=== PATIENT | female | born 1965 | race Caucasian/White ===

== ENCOUNTER → 2016-04-24 | Outpatient (CLI) | payer BC, OTHER | END | disposition home or self-care (01) | LOC: C.LABMFLN 13:43 | PROVIDERS: ATTEND Family Medicine | DX: R10.9 Unspecified abdominal pain (principal) ==

== ENCOUNTER → 2016-05-27 | Outpatient (CLI) | payer BC ==
[2016-05-27 17:45] LABS: URINE APPEARANCE CLEAR (CLEAR); URINE BILIRUBIN NEG (NEG); URINE COLOR YELLOW; URINE NITRITE NEG (NEG); URINE SPECIFIC GRAVITY 1.009 (1.000-1.030); UROBILINOGEN NEG (NEG)
[2016-05-27 17:54] LABS: MANUAL MICROSCOPIC REQUIRED? NO; REVIEW REQ? NO
== END | disposition home or self-care (01) ==
LOC: C.LABMFLN 13:57
PROVIDERS: ATTEND Family Medicine
DX: R31.0 Gross hematuria (principal)

== ENCOUNTER → 2016-05-27 | Outpatient (CLI) | payer BC | END | disposition home or self-care (01) | LOC: C.PAPS 08:30 | PROVIDERS: ATTEND Family Medicine | DX: Z01.419 Encounter for gynecological examination (general) (routine) without abnormal findings (principal) ==

== ENCOUNTER → 2017-02-02 | Outpatient (CLI) | payer BC ==
--- NOTE | 2017-02-03 07:36 | MAMMOGRAPHY REPORT ---
BILATERAL DIGITAL SCREENING MAMMOGRAM TOMOSYNTHESIS WITH CAD: 02/02/2017 CLINICAL HISTORY: Routine screening. Patient has no complaints. TECHNIQUE: Breast tomosynthesis in addition to standard 2D mammography was performed. Current study was also evaluated with a Computer Aided Detection (CAD) system. COMPARISON: Comparison is made to exams dated: 12/23/2015 mammogram, 12/19/2014 mammogram, 4 mammogram, 01/15/2014 stereotactic biopsy, 01/03/2014 mammogram, and 12/18/2013 mammogram - [facility]. BREAST COMPOSITION: The tissue of both breasts is heterogeneously dense, which may obscure small mas ses. FINDINGS: There is a stable dumbbell shaped biopsy marker clip in the 6:00 middle one third of the ri ght breast. A few remaining punctate microcalcifications are seen just posterior and medial to the b iopsy marker clip, most likely representing central benign calcifications. There is also a stable ri bbon-shaped biopsy marker clip in the lateral left breast. No new suspicious mass, architectural distortion or cluster of microcalcifications is seen. IMPRESSION: ACR BI-RADS CATEGORY 2: BENIGN There is no mammographic evidence of malignancy. A 1 year screening mammogram is recommended. The pa tient will receive written notification of the results. Approximately 10% of breast cancers are not detected with mammography. A negative mammographic report should not delay biopsy if a clinically suggestive mass is present. Veronica Fofana M.D. ay/:02/02/2017 16:29:46 Certified Welder: Zoie DHILLON(Thomas)(Pauline), [facility] letter sent: Normal 1/2 BI-RADS Code: ACR BI-RADS Category 2: Benign
== END | disposition home or self-care (01) ==
LOC: C.MAMM 12:08
PROVIDERS: ATTEND Family Medicine
DX: Z12.31 Encounter for screening mammogram for malignant neoplasm of breast (principal)

== ENCOUNTER → 2017-05-31 | Outpatient (CLI) | payer BC ==
[2017-05-31 13:44] LABS: BASO % 0.7 %; BASO ABS # 0.03 K/uL (0-0.2); EOS % 1.3 %; EOS ABS # 0.06 K/uL (0-0.5); HEMATOCRIT 38.9 % (37-47); HEMOGLOBIN 13.4 g/dL (12.0-16.0); IG# 0.01 K/uL (0.00-0.02); LYMPH % 49.8 %; LYMPH ABS # 2.25 K/uL (1.2-3.4); MEAN CELL VOLUME 94.4 fL (80-100); MEAN CORPUSCULAR HEMOGLOBIN 32.5 pg (25-34); MEAN CORPUSCULAR HGB CONC 34.4 g/dl (32-36); MONO ABS # 0.36 K/uL (0.11-0.59); NEUT ABS # 1.81 K/uL (1.4-6.5); PLATELET COUNT 299 K/uL (130-400); RED CELL DISTRIBUTION WIDTH CV 13.2 % (11.5-14.5); RED CELL DISTRIBUTION WIDTH SD 45.8 fL (36.4-46.3); WHITE BLOOD COUNT 4.52 K/uL (4.8-10.8)
[2017-05-31 14:29] LABS: ALBUMIN 4.2 gm/dl (3.4-5.0); BLOOD UREA NITROGEN 12 mg/dl (7-18); CARBON DIOXIDE 25 mmol/L (21-32); CHOLESTEROL 182 mg/dl (0-200); GLUCOSE 88 mg/dl (70-99); POTASSIUM 3.8 mmol/L (3.5-5.1); SODIUM 138 mmol/L (136-145)
[2017-05-31 14:40] LABS: LDL CHOLESTEROL CALCULATED 103 mg/dl
== END | disposition home or self-care (01) ==
LOC: C.LABMFLN 09:43
PROVIDERS: ATTEND Family Medicine
DX: Z11.59 Encounter for screening for other viral diseases (principal); R00.2 Palpitations; E78.5 Hyperlipidemia, unspecified

== ENCOUNTER 2018-09-04 14:03 | Inpatient (IN) ==
[2018-09-04] MEDS ORDERED: methylPREDNISolone 125 MG/2 ML VIAL IV STA (14:34)
[2018-09-04] MEDS ORDERED: SODIUM CHLORIDE 0.9% 500 ML IV SCH (14:45)
[2018-09-04 14:47] LABS: Basophils # (auto) 0.02 K/uL (0-0.2); Basophils % (auto) 0.2 %; Hematocrit (blood only) 28.9 % (37-47); Immature Granulocytes # (auto) 0.23 K/uL (0.00-0.02); Immature Granulocytes % (auto) 2.6 %; Lymphocytes # (auto) 1.59 K/uL (1.2-3.4); Lymphocytes % (auto) 17.9 %; Mean Corpuscular Hgb Conc 31.1 g/dL (32-36); Mean Corpuscular Volume 83.5 fL (80-100); Mean Platelet Volume 8.1 fL (7.4-10.4); Neutrophils # (auto) 6.25 K/uL (1.4-6.5); Neutrophils % (auto) 70.3 %; Platelet Count 698 K/uL (130-400); RDW Coefficient of Variation 16.1 % (11.5-14.5); RDW Standard Deviation 48.9 fL (36.4-46.3); Red Blood Count 3.46 M/uL (4.2-5.4); White Blood Count 8.89 K/uL (4.8-10.8)
[2018-09-04 14:55] LABS: Albumin Level 2.4 gm/dl (3.4-5.0); BUN Creatinine Ratio 15.1 (10-20); Calcium 8.9 mg/dl (8.5-10.1); Creatinine Clr Calc Pharmacy 71.1 ml/min; Est GFR (African American) 96.1; Est GFR (Non-African American) 82.9; Potassium 3.8 mmol/L (3.5-5.1)
[2018-09-04 14:57] LABS: Albumin Globulin Ratio 0.5 (0.9-2); Bilirubin,Total 0.2 mg/dl (0.2-1); Globulin 4.5 gm/dl (2.5-4.0); Total Protein 6.9 gm/dl (6.4-8.2)
[2018-09-04 15:06] LABS: Appearance Urine Cloudy (Clear); Bacteria Urine Automated Negative (Negative); Bilirubin Urine Negative (Negative); Blood Urine Negative (Negative); Color Urine Yellow; Epithelial Cell Urine Auto >30 /lpf (0-5); Glucose Urine UA Negative (Negative); Ketones Urine Negative (Negative); Leukocyte Esterase Urine Trace (Negative); Nitrite Urine Negative (Negative); Protein Urine Negative (Negative); RBC Urine Automated 0-4 /hpf (0-4); Specific Gravity Urine 1.019 (1.000-1.030); Urobilinogen Urine Negative (Negative); pH Urine 6.5 (4.5-7.5)
--- NOTE | 2018-09-04 17:42 | History & Physical Report ---
Date of Service September 04, 2018 History of Present Illness Chief Complaint: GI bleeding, arthralgias, back pain associated with Crohn's flare. Primary Care Provider: Sophie Russell MD 52 y/o F Hx Crohn's disease, B12 deficiency, arthralgias and sacroiliitis. The pt was has been experiencing a flare of her Crohn's disease, persistent diarrhea, rectal bleeding and resultant anemia for close to 6 months. Prior to this time she had been taking Remicade successfully for 1.5 years until the medication essentially failed. She is now prescribed Entyvio and has been taking this, thus far without effect for approximately 14 weeks. She is also on a steroid taper and Budesonide. 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 PMH: 1) Crohn's disease - she was diagnosed with UC at age 36 although she has likely had Crohn's from the outset. She managed with Mesalazine and occasional steroids for nearly 15 years until starting Remicade. The diagnosis was recently changed from UC to Crohn's based on colonoscopy results. She follows with Dr Posada and has consulted with a specialist at [place] and [facility] as well. 2) HLA B27 +. She is told she likely has ankylosing spondylitis but does not have an official diagnosis. 3) Chronic arthralgias and sacroiliitis. 4) B12 deficiency 5) Anemia due to chronic disease, blood loss and iron deficiecny - recent baseline Hb has been 9-10 6) Asthma Surgical: 1) Broken nose 2) [facility] teeth 3) L elbow surgery 4) C section 5) Cholecystectomy Social: Rare ETOH, no smoking history. 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 Family: 2 siblings with UC Father had colon CA Allergies Allergy/AdvReac Type Severity Reaction Status Date / Time amoxicillin [From Augmentin] Allergy Verified 09/04/18 15:00 clavulanic acid Allergy Verified 09/04/18 15:00 [From Augmentin] Home Medications Home Medications Medication Instructions Recorded Confirmed Type vedolizumab 300 mg intravenous 300 mg IV .COMPLEX ea 07/31/18 09/04/18 History solution ondansetron HCl 4 mg tablet 4 mg PO QID PRN #30 tab 08/29/18 09/04/18 Rx pramoxine 1 % topical foam 1 appln WI TID 08/29/18 09/04/18 History prednisone 10 mg tablets in a dose 40 mg PO QAM ea 08/29/18 09/04/18 History pack celecoxib 200 mg PO PM 09/04/18 09/04/18 History cyanocobalamin (vitamin B-12) 1,000 mcg PO QAM 09/04/18 09/04/18 History dicyclomine 10 mg PO BID PRN 09/04/18 09/04/18 History loratadine 10 mg PO DAILY PRN 09/04/18 09/04/18 History pantoprazole 20 mg PO QAM 09/04/18 09/04/18 History Past Med/Surg History Medical History Iron deficiency anemia Allergic rhinitis (Chronic) Asthma (Chronic) Hyperlipidemia (Chronic) Idiopathic polyneuropathy (Chronic) Inflammatory polyarthritis (Chronic) Insomnia (Chronic) Ulcerative colitis (Chronic) Vitamin B12 deficiency (Chronic) Surgical History S/P breast biopsy H/O elbow surgery S/P nasal surgery S/P S/P cholecystectomy S/P colonoscopy Family History Unknown Hypertension Mother Hypertension Brother Hypertension Ulcerative colitis Sister Ulcerative colitis Other Asthma Cancer Colon cancer Hay fever No pertinent family history Urinary bladder cancer Social History Preferred Language: Gabonese Communication Ability: Effective Visual Impairment: No Limitations Hearing Ability: Normal Feels Safe at Home: Yes Smoking Status: Never smoker Review of Systems Review of Systems: Gen: Denies fevers, night sweats, rigors, fatigue, malaise, weight loss/gain ENT: Denies congestion, throat pain, hearing loss Eyes: Denies acute visual changes CV: Denies CP, palpitations Pulmonary: Denies SOB, cough, wheezing GI: Diarrhea, rectal pain and bleeding. Neuro: Denies acute or unilateral weakness, acute gait impairment, headache or acute visual changes Musculoskeletal: Lower back and joint pains Endocrine: Denies polydipsia, polyuria Skin: Denies acute rashes or ulcers - she had a transient rash which may have been related to Entyvio. Physical Exam Physical Exam: General: Well-appearing, middle-aged F, AAO x 3, no distress ENT: No erythema or exudates. +Thrush Eyes: MARYANN, EOMI Head and neck: Normocephalic, atraumatic, No JVD, neck is supple. Chest/heart: Nontender, S1,2, RRR, no murmurs, no gallops Lungs: CTAB, no wheezing or crackles Abdomen: Nontender, nondistended, BS+ Neuro: AAO x 3, speech is clear, no unilateral weakness or loss of sensation, coordination intact Musculoskeletal: No joint inflammation, muscle tenderness, FROM Skin: No acute rashes or ulcers Extremities: No clubbing, cyanosis, edema Results & Data Vital Signs (Past 12 Hours) Vital Signs Temp Pulse Resp BP Pulse Ox 09/04/18 14:05 98.6 F 121 H 18 117/56 L 98 Diagnostic Findings 52 y/o F Hx Crohn's disease, B12 deficiency, arthralgias and sacroiliitis. The pt was has been experiencing a flare of her Crohn's disease, persistent diarrhea, rectal bleeding and resultant anemia for close to 6 months. Prior to this time she had been taking Remicade successfully for 1.5 years until the medication essentially failed. She is now prescribed Entyvio and has been taking this, thus far without effect for approximately 14 weeks. She is also on a steroid taper and Budesonide. 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 1) Crohn's flare - per request of GI, provided with IV steroids. She is instructed to continue Entyvio as it may take a few months for results. She is placed on a liquid diet and GI is consulted. 2) Back pain and arthralgias - she takes Celecoxib which we will hold presently. She is provided with Tramadol for pain. 3) B12 deficiency - cont B12 4) Anemia - appears stable - trend CBC AM 5) Thrush - Nystatin provided Full code - SCDs due to active bleeding - she is at risk of DVT and should mobilize frequently. Total time for this admit including review of labs, meds, imaging, records - discussion with pt and ER attending - 40 min PG Care Time/CCT Total # of Minutes Spent Total Time Spent with Patient: Total time spent is greater than 50% in coordination of care (as documented) at patient's floor/unit and/or counseling patient:
[2018-09-04] MEDS ORDERED: LORATADINE 10 MG TAB PO PRN (18:26)
[2018-09-04] MEDS ORDERED: ACETAMINOPHEN 325 MG TAB PO PRN (18:26)
[2018-09-04] MEDS ORDERED: ONDANSETRON INJ 2 MG/ML 2 ML VIAL IV PRN (18:26)
[2018-09-04] MEDS: LACTATED RINGER'S 1,000 ML IV SCH (18:47)
[2018-09-04] MEDS: TRAMADOL HCL 50 MG TABLET PO PRN (19:34)
--- NOTE | 2018-09-04 20:27 | Emergency Department Note ---
Entered by Aramis Tucker acting as a scribe for History of Present Illness General Chief complaint: Abdominal Pain Stated complaint: IBD Source: patient History of Present Illness Provider complaint: Rectal pain Onset (ago): month(s) 6 Location: buttocks Severity: similar to prior episodes Pain Consistency: + constant Maximum Pain Intensity: 3 Quality: + aching, + sharp and + other (Throbbing) Relieved By: + none Exacerbated By: + other (Bowel movements, standing) Associated symptoms: + other (Positive diarrhea; Positive hematochezia; Positive lightheadedness); no fever/chills, no loss of appetite and no nausea/vomiting The patient is a 52 year old female who presents to the Emergency Room with complaints of constant rectal pain that has been worsening over the past 6 months. The patient has a history of Crohn's disease, which she was being treated for with Remicade for about a year and a half before it suddenly stopped working. She was then put on Entyvio, which she receives one dose every 8 weeks. The patient notes this coming Wednesday will valentin the 8 week period since her last dose. Since the Remicade stopped working, the patient has had diarrhea, which almost always contained blood. She notes that when she has larger bowel movements the blood is bright red, but normally it is more of a "pink sludge". The patient also reports having sharp rectal pains, when normally it is a throbbing, achy sensation that is worse with bowel movements. Today, the patient states she started experiencing lightheadedness, especially when she stands. She also noticed a tingling sensation in her hands and feet. The patient notes she took her blood pressure at home and it was 96/60 when it normally runs around 110 systolically. The patient denies having an abnormal amount of blood wth bowel movements since the onset of the lightheadedness. The patient has been seen by multiple doctors for her symptoms including Dr. Posada, who diagnosed her with Crohns, and specialist at [facility]. She notes about 6 days ago she had her INR checked and it was 9.1.The patient is currently on day 9 of a course of 40mg Prednisone. The patient also takes Celebrex for her sacroiliitis, becaus e she was having trouble ambulating due to the disease. The patient also has a history of gastritis and mild asthma. The patient denies any fevers, vomiting, loss of appetite, or urinary symptoms. Home Medications Home Medications Medication Instructions Recorded Confirmed Type vedolizumab 300 mg intravenous 300 mg IV .COMPLEX ea 07/31/18 09/04/18 History solution ondansetron HCl 4 mg tablet 4 mg PO QID PRN #30 tab 08/29/18 09/04/18 Rx pramoxine 1 % topical foam 1 appln AL TID 08/29/18 09/04/18 History prednisone 10 mg tablets in a dose 40 mg PO QAM ea 08/29/18 09/04/18 History pack celecoxib 200 mg PO PM 09/04/18 09/04/18 History cyanocobalamin (vitamin B-12) 1,000 mcg PO QAM 09/04/18 09/04/18 History dicyclomine 10 mg PO BID PRN 09/04/18 09/04/18 History loratadine 10 mg PO DAILY PRN 09/04/18 09/04/18 History pantoprazole 20 mg PO QAM 09/04/18 09/04/18 History Allergies Allergy/AdvReac Type Severity Reaction Status Date / Time amoxicillin [From Augmentin] Allergy Verified 09/04/18 15:00 clavulanic acid Allergy Verified 09/04/18 15:00 [From Augmentin] Past Med/Surg History Medical History Iron deficiency anemia Allergic rhinitis (Chronic) Asthma (Chronic) Hyperlipidemia (Chronic) Idiopathic polyneuropathy (Chronic) Inflammatory polyarthritis (Chronic) Insomnia (Chronic) Ulcerative colitis (Chronic) Vitamin B12 deficiency (Chronic) Surgical History S/P breast biopsy H/O elbow surgery S/P nasal surgery S/P S/P cholecystectomy S/P colonoscopy Family History Unknown Hypertension Mother Hypertension Brother Hypertension Ulcerative colitis Sister Ulcerative colitis Other Asthma Cancer Colon cancer Hay fever No pertinent family history Urinary bladder cancer Social History Preferred Language: Turkmen Communication Ability: Effective Visual Impairment: No Limitations Hearing Ability: Normal Beliefs That Will Affect Care: None Current Living Situation: Spouse Feels Safe at Home: Yes Smoking Status: Never smoker Second Hand Exposure: No Hx Alcohol Use: Yes Hx Substance Use: No Review of Systems See HPI for pertinent positives & negatives. and A total of 10 systems reviewed and were otherwise negative Physical Exam Vital Signs Vital Signs - 24 hr 09/04/18 14:05 09/04/18 16:04 Temperature 37.0 C Temperature Source Oral Sepsis Recent Fever Within 48 Hours No Sepsis New/Unexplained Change in Mental Status No Sepsis Action Taken by Nursing No Action Required Pulse Rate 121 H Pulse Rate [Right Finger] 78 Respiratory Rate 18 18 Respiratory Effort / Characteristics Non-Labored Non-Labored Spontaneous Respiratory Depth Normal Normal Respiratory Pattern Regular Blood Pressure 117/56 L Blood Pressure [Right Arm] 129/62 Blood Pressure Mean 76 Blood Pressure Mean [Right Arm] 84 Blood Pressure Position Sitting Blood Pressure Position [Right Arm] Lying Pulse Oximetry 98 98 Oxygen Delivery Method Room Air Room Air Constitutional: Vital signs reviewed. Eyes: Pupils are equal round reactive to light. Conjunctiva are noninjected. ENT: Pharynx is clear without erythema or exudate. Mucous membranes are dry. Neck supple without meningeal signs. Respiratory: Clear to auscultation bilaterally. Breath sounds are equal bilaterally. Cardiovascular: Tachycardic rate and regular rhythm. No rubs or gallops. GI: Soft, nondistended and nontender. Bowel sounds are hyperactive. Musculoskeletal: No peripheral edema. No lower extremity tenderness. Integumentary: Pale. No cyanosis. Neurological: The patient is awake and alert. No focal deficits. Psychiatric: Normal affect. Course 1420: Past medical records reviewed. The patient was evaluated in room C10, and a complete history and physical examination were performed. 1510: I updated the patient on test results. GI is going to be paged. 1600: I reevaluated the patient and she is resting comfortably. We are still waiting to hear from Dr. Mike of GI. 1617: I spoke to Dr. Rashid MEAD who said to get her hospitalized for IV steroids. 1620: I discussed the treatment plan with the patient and her family. They fully understand and are agreeable with the plan. Dr. Karyn Aly [facility] Hospitalist was i nformed. 1650: I spoke to Dr. Boss [facility] Hospitalist about the patient's case and he is going to accept her for further evaluation. Consultations Consultation #1: I spoke to Dr. Rashid [facility] who said to get her hosp italized for IV steroids. Time: 16:17 Consultation #2: I spoke to Dr. Boss - [facility] Hospitalist about the patient's case and he is going to accept her for further evaluation. Time: 16:50 Administered Medications Lactated Ringer's (Lr) 1,000 mls @ 150 mls/hr IV .Q6H40M TOMAS Stop: 09/05/18 07:45 Last Admin: 09/04/18 18:47 Dose: 150 mls/hr Documented by: [id number] Tramadol HCl (Ultram) 50 mg PO Q4H PRN PRN Reason: Pain Stop: 10/04/18 18:25 Last Admin: 09/04/18 19:34 Dose: 50 mg Documented by: [id number] Discontinued Medications Sodium Chloride (Nss) 500 mls @ 999 mls/hr IV .Q31M TOMAS Stop: 09/04/18 15:15 Last Infusion: 09/04/18 15:24 Dose: 0 mls/hr Documented by: [id number] Admin: 09/04/18 14:49 Dose: 999 mls/hr Documented by: [id number] Methylprednisolone (Solumedrol) 125 mg IV NOW STA Stop: 09/04/18 14:35 Last Admin: 09/04/18 14:49 Dose: 125 mg Documented by: [id number] Medical Decision Making Differential Diagnosis Differential Diagnosis includes: Crohn's disease exacerbation, GI bleed, anemia, dehydration, and abscess, amongst others. Medical Records Attestation: I reviewed the patient's medical records. I did perform a limited focused review of portions of the patient's old chart on the electronic medical record. The patient had a Flex-Sig done on August 18 that showed inflammation from the rectum to the sigmoid of moderate severity, worsened from prior exams. Home Medications Current Medication List: was personally reviewed by me Laboratory Data Attestation: I reviewed the patient's lab results. Result diagrams: 09/04/18 14:15 09/04/18 14:15 Lab Results 09/04/18 09/04/18 09/04/18 Range/Units 14:15 14:15 14:46 WBC 8.89 (4.8-10.8) K/uL RBC 3.46 L (4.2-5.4) M/uL Hgb 9.0 L (12.0-16.0) g/dL Hct 28.9 L (37-47) % MCV 83.5 (80-100) fL MCH 26.0 (25-34) pg MCHC 31.1 L (32-36) g/dL RDW Std Deviation 48.9 H (36.4-46.3) fL RDW Coeff of Allison 16.1 H (11.5-14.5) % Plt Count 698 H (130-400) K/uL MPV 8.1 (7.4-10.4) fL Immature Gran % (Auto) 2.6 % Neut % (Auto) 70.3 % Lymph % (Auto) 17.9 % Mcnairy % (Auto) 9.0 % Eos % (Auto) 0.0 % Baso % (Auto) 0.2 % Immature Gran # (Auto) 0.23 H (0.00-0.02) K/uL Neut # (Auto) 6.25 (1.4-6.5) K/uL Lymph # (Auto) 1.59 (1.2-3.4) K/uL Mcnairy # (Auto) 0.80 H (0.11-0.59) K/uL Eos # (Auto) 0.00 (0-0.5) K/uL Baso # (Auto) 0.02 (0-0.2) K/uL Sodium 139 (136-145) mmol/L Potassium 3.8 (3.5-5.1) mmol/L Chloride 104 (98-107) mmol/L Carbon Dioxide 29 (21-32) mmol/L Anion Gap 6.0 (3-11) BUN 12 (7-18) mg/dl Creatinine 0.81 (0.6-1.2) mg/dl Est Cr Clr Drug Dosing 71.1 ml/min Est GFR ( Amer) 96.1 Est GFR (Non-Af Amer) 82.9 BUN/Creatinine Ratio 15.1 (10-20) Glucose 130 H (70-99) mg/dl Calcium 8.9 (8.5-10.1) mg/dl Total Bilirubin 0.2 (0.2-1) mg/dl AST 7 L (15-37) U/L ALT 18 (12-78) U/L Alkaline Phosphatase 30 L (45-117) U/L Total Protein 6.9 (6.4-8.2) gm/dl Albumin 2.4 L (3.4-5.0) gm/dl Globulin 4.5 H (2.5-4.0) gm/dl Albumin/Globulin Ratio 0.5 L (0.9-2) Lipase 116 (73-393) U/L Urine Color Urine Appearance (Clear) Urine pH (4.5-7.5) Ur Specific [place] (1.000-1.030) Urine Protein (Negative) Urine Glucose (UA) (Negative) Urine Ketones (Negative) Urine Blood (Negative) Urine Nitrite (Negative) Urine Bilirubin (Negative) Urine Urobilinogen (Negative) Ur Leukocyte Esterase (Negative) Urine WBC (Auto) (0-5) /hpf Urine RBC (Auto) (0-4) /hpf U Hyaline Cast (Auto) (0-5) /lpf U Epithel Cells (Auto) (0-5) /lpf Urine Bacteria (Auto) (Negative) Blood Type B Positive Antibody Screen NEGATIVE 09/04/18 Range/Units 14:48 WBC (4.8-10.8) K/uL RBC (4.2-5.4) M/uL Hgb (12.0-16.0) g/dL Hct (37-47) % MCV (80-100) fL MCH (25-34) pg MCHC (32-36) g/dL RDW Std Deviation (36.4-46.3) fL RDW Coeff of Allison (11.5-14.5) % Plt Count (130-400) K/uL MPV (7.4-10.4) fL Immature Gran % (Auto) % Neut % (Auto) % Lymph % (Auto) % Mcnairy % (Auto) % Eos % (Auto) % Baso % (Auto) % Immature Gran # (Auto) (0.00-0.02) K/uL Neut # (Auto) (1.4-6.5) K/uL Lymph # (Auto) (1.2-3.4) K/uL Mcnairy # (Auto) (0.11-0.59) K/uL Eos # (Auto) (0-0.5) K/uL Baso # (Auto) (0-0.2) K/uL Sodium (136-145) mmol/L Potassium (3.5-5.1) mmol/L Chloride (98-107) mmol/L Carbon Dioxide (21-32) mmol/L Anion Gap (3-11) BUN (7-18) mg/dl Creatinine (0.6-1.2) mg/dl Est Cr Clr Drug Dosing ml/min Est GFR ( Amer) Est GFR (Non-Af Amer) BUN/Creatinine Ratio (10-20) Glucose (70-99) mg/dl Calcium (8.5-10.1) mg/dl Total Bilirubin (0.2-1) mg/dl AST (15-37) U/L ALT (12-78) U/L Alkaline Phosphatase (45-117) U/L Total Protein (6.4-8.2) gm/dl Albumin (3.4-5.0) gm/dl Globulin (2.5-4.0) gm/dl Albumin/Globulin Ratio (0.9-2) Lipase (73-393) U/L Urine Color Yellow Urine Appearance Cloudy A (Clear) Urine pH 6.5 (4.5-7.5) Ur Specific [place] 1.019 (1.000-1.030) Urine Protein Negative (Negative) Urine Glucose (UA) Negative (Negative) Urine Ketones Negative (Negative) Urine Blood Negative (Negative) Urine Nitrite Negative (Negative) Urine Bilirubin Negative (Negative) Urine Urobilinogen Negative (Negative) Ur Leukocyte Esterase Trace H (Negative) Urine WBC (Auto) 1-5 (0-5) /hpf Urine RBC (Auto) 0-4 (0-4) /hpf U Hyaline Cast (Auto) 10-30 H (0-5) /lpf U Epithel Cells (Auto) >30 H (0-5) /lpf Urine Bacteria (Auto) Negative (Negative) Blood Type Antibody Screen Blood Pressure Blood Pressure Findings: Normal blood pressure Blood Pressure Disposition: further management by hospitalist VINNY Gonzalez I did evaluate the patient as noted above. The patient is presenting with persistent symptoms from her Crohn's disease. She states her pain and rectal bleeding is getting worse. She is currently on prednisone and started to feel lightheaded upon standing today. She was advised by the GI doctor to go to the ED for evaluation. On exam she has no abdominal tenderness to suggest an acute surgical process. I therefore felt no advanced imaging was indicated at this ti me. IV access was established. I did treat her with Solu-Medrol 125 mg IV. The patient was placed on a continuous ekg monitor.I did order and review the patient's blood work as noted in the electronic medical record. She has anemia with a hemoglobin of 9 which is stable. Platelet count is elevated at 698. Glucose is 130. Electrolytes are unremarkable. I did discuss the test results with the patient and her . I did discuss case with Dr. Kebede of gastroenterology. He recommended admitting the patient for IV steroids. I did discuss the plan with the patient who is agreeable. I did discuss the case with the hospitalist and case operator. Impression & Plan Exacerbation of Crohn's disease, Anemia Discharge Plan Visit Data *Final* Discharge Date/Time: 09/04/18 18:26 Chief Complaint: Abdominal Pain Stated Complaint: IBD ED Provider: Curt Mills Discharge Problem: Exacerbation of Crohn's disease, Anemia Patient Disposition: Admitted As Inpatient Discharge Instructions Interventions: ED Discharge Assessment Last Done: 09/04/18 18:26 Discharge Problem: Exacerbation of Crohn's disease Qualifiers: Digestive disease complication type: with rectal bleeding Qualified Code(s): K50.911 - Crohn's disease, unspecified, with rectal bleeding Anemia Qualifiers: Anemia type: unspecified type Qualified Code(s): D64.9 - Anemia, unspecified The scribe's documentation has been prepared under my direction and personally reviewed by me in its entirety. I confirm that the note above accurately reflects all work, treatment, procedures, and medical decision making performed by me.
[2018-09-04] MEDS: ZOLPIDEM TARTRATE 5 MG TAB PO PRN (22:46)
[2018-09-05] MEDS: LACTATED RINGER'S 1,000 ML IV SCH (01:03)
[2018-09-05] MEDS: TRAMADOL HCL 50 MG TABLET PO PRN ×3 (01:41→22:50)
[2018-09-05] MEDS: methylPREDNISolone 60 MG in SYRINGE 0 ML IV SCH ×2 (03:29→16:15)
[2018-09-05 07:25] LABS: Hemoglobin 8.5 g/dL (12.0-16.0); Mean Corpuscular Hgb Conc 31.5 g/dL (32-36); Mean Corpuscular Volume 81.6 fL (80-100); Platelet Count 574 K/uL (130-400); RDW Coefficient of Variation 16.2 % (11.5-14.5); Red Blood Count 3.31 M/uL (4.2-5.4); White Blood Count 7.68 K/uL (4.8-10.8)
[2018-09-05 07:46] LABS: BUN Creatinine Ratio 15.5 (10-20); Creatinine Clr Calc Pharmacy 87.8 ml/min; Est GFR (African American) 116.9; Est GFR (Non-African American) 100.9; Magnesium 2.1 mg/dl (1.8-2.4)
[2018-09-05 08:22] LABS: Basophils # (auto) 0.01 K/uL (0-0.2); Basophils % (auto) 0.1 %; Immature Granulocytes # (auto) 0.08 K/uL (0.00-0.02); Lymphocytes # (auto) 1.18 K/uL (1.2-3.4); Lymphocytes % (auto) 15.4 %; Monocytes # (auto) 0.32 K/uL (0.11-0.59); Monocytes % (auto) 4.2 %; Neutrophils # (auto) 6.09 K/uL (1.4-6.5); Neutrophils % (auto) 79.3 %
[2018-09-05] MEDS: CYANOCOBALAMIN 500 MCG TABLET (VITAMIN B-12) PO SCH (09:00)
[2018-09-05] MEDS: PANTOprazole 40 MG TAB PO SCH (12:42)
--- NOTE | 2018-09-05 13:12 | Hospitalist Progress Note ---
Date of Service September 05, 2018 Assessment & Plan (1) Exacerbation of Crohn's disease: - Continue IV steroids per GI - continue Entyvio per GI - she was due for next dose Wednesday but had discussed possibly receiving earlier dose. Will await GI red - clear liquid diet -GI consult (2) Iron deficiency anemia: Hgb 8.4 - was due for Venofer infusions tomorrow at [facility], will infuse one dose of Venofer today (3) Thrush, oral: Continue nystatin (4) Vitamin B12 deficiency: continue B12 (5) Back pain: hold home celecoxib and give Tramadol prn for now. (6) DVT prophylaxis: SCDs Subjective Ms. Marti is feeling somewhat better than when she came in. No bleeding or bowel movements today. She feels hungry. No other complaints Review of Systems Review of Systems: All systems reviewed & are unremarkable except as noted in HPI & below Physical Exam Physical Exam: General: no distress Eyes: normal inspection, PERLL Respiratory: chest non tender, clear to auscultation, normal breath sounds, no respiratory distress, no accessory muscle use Cardiac: regular rate and rhythm, no rub or gallop, no murmur, no edema, no jvd GI/: active bowel sounds, no abd pain or tenderness, soft, non distended Extremities: normal range of motion, normal strength, non tender Neuro/Psych: alert and oriented x 3, normal mood and affect Skin: normal color, dry Results & Data Vital Signs (Past 12 Hours) Vital Signs Temp Pulse Resp BP Pulse Ox 09/05/18 07:12 36.7 C 78 18 126/63 97 PG Care Time/CCT Total # of Minutes Spent Total Time Spent with Patient: Total time spent is greater than 50% in coordination of care (as documented) at patient's floor/unit and/or counseling patient: (1) Exacerbation of Crohn's disease Digestive disease complication type: with rectal bleeding Qualified Code(s): K50.911 - Crohn's disease, unspecified, with rectal bleeding
[2018-09-05] MEDS ORDERED: IRON SUCROSE 100 MG in 0.9 % SODIUM CHLORIDE 100 ML IV SCH (13:30)
--- NOTE | 2018-09-05 14:58 | Gastrointestinal Consultation ---
Date of Consultation September 05, 2018 Assessment & Plan (1) Exacerbation of Crohn's disease: Continue IV steroids and clear liquids for now. There are variations in opinion in next step for biologic among the [address] Posada is to see patient also today to discuss the next move diarrhea--can certainly be from crohns but check cdiff GI bleeding--likely crohns but check Cdiff as above abd pain--from crohns most likely. most recent CT 08/30/18 and do not feel another will add much benefit. History of Present Illness Reason for Consultation: crohns disease Requesting Physician: Dr Cristian Boss Attending Physician: Curt Chapa MD History of Present Illness CC diarrrhea and bleeding HPI Pt folllowed by DR Posada locally and Dr Cardona at [place] (most recently 08/26/18) and also Dr Dewey at [facility] (09/02/18) for IBD diagnosed 1999 initially thought UC but most recently FS 08/18/[address] Posada though to have crohns. Pt was started on Remicade 2016 and controlled well for 1.5 years. Oct 2017 her SI joints pain was worse and started on Celebrxe. Apr 2018 GI symptoms worse, remicade level 09/2017 9.7 and no ab. Starte on Budesonide and Remicade stopped 04/11/18. [place] 05/27/18 moderately severe colitis and srated on Entyvio 06/03/18 and due for next dose 09/12/18. She was continued on budesonide. Her symptoms have not imporved and currently has 15 bms daily with blood and moderate diffuse abd pain. She has been on Prednisone 40 mg daily over last [address] Lam saw her. She had FS which showed severe IBD and characterized as crohns by DR Posada. Most recent imaging was CT 08/30/18 at [facility] descending colon thickening noted. She was on abx for pyelonephritis 06/2018 hospitalized at [facility] and states Cdiff neg then. Allergies Allergy/AdvReac Type Severity Reaction Status Date / Time amoxicillin [From Augmentin] Allergy Verified 09/04/18 15:00 clavulanic acid Allergy Verified 09/04/18 15:00 [From Augmentin] Home Medications Home Medications Medication Instructions Recorded Confirmed Type vedolizumab 300 mg intravenous 300 mg IV .COMPLEX ea 07/31/18 09/04/18 History solution ondansetron HCl 4 mg tablet 4 mg PO QID PRN #30 tab 08/29/18 09/04/18 Rx pramoxine 1 % topical foam 1 appln PA TID 08/29/18 09/04/18 History prednisone 10 mg tablets in a dose 40 mg PO QAM ea 08/29/18 09/04/18 History pack celecoxib 200 mg PO PM 09/04/18 09/04/18 History cyanocobalamin (vitamin B-12) 1,000 mcg PO QAM 09/04/18 09/04/18 History dicyclomine 10 mg PO BID PRN 09/04/18 09/04/18 History loratadine 10 mg PO DAILY PRN 09/04/18 09/04/18 History pantoprazole 20 mg PO QAM 09/04/18 09/04/18 History Patient History Medical History Iron deficiency anemia Allergic rhinitis (Chronic) Asthma (Chronic) Hyperlipidemia (Chronic) Idiopathic polyneuropathy (Chronic) Inflammatory polyarthritis (Chronic) Insomnia (Chronic) Ulcerative colitis (Chronic) Vitamin B12 deficiency (Chronic) Surgical History S/P breast biopsy H/O elbow surgery S/P nasal surgery S/P S/P cholecystectomy S/P colonoscopy Family History Unknown Hypertension Mother Hypertension Brother Hypertension Ulcerative colitis Sister Ulcerative colitis Other Asthma Cancer Colon cancer Hay fever No pertinent family history Urinary bladder cancer Social History Preferred Language: [place] Communication Ability: Effective Visual Impairment: No Limitations Hearing Ability: Normal Beliefs That Will Affect Care: None Current Living Situation: Spouse Feels Safe at Home: Yes Smoking Status: Never smoker Second Hand Exposure: No Hx Alcohol Use: Yes Hx Substance Use: No Review of Systems Review of Systems: All systems reviewed & are unremarkable except as noted in HPI & below Physical Exam Constitutional: WD/WN, vitals as above Eyes: PERRL, conjunctivae normal, anicteric sclerae ENMT: external ear and nose normal, oropharynx normal Neck: normal visual inspection and trachea midline Respiratory: normal respiratory effort, lungs clear to auscultation Cardiovascular: RRR, no murmur, no edema Gastrointestinal (Abdomen): normal bowel sounds, soft, nontender, no he patosplenomegaly Neurologic: PERRL, EOMI, accommodation nl, no face palsy, no dysarthria Psychiatric: A+Ox3, euthymic affect Results & Data Vital Signs (Past 12 Hours) Vital Signs Temp Pulse Resp BP Pulse Ox 09/05/18 07:12 36.7 C 78 18 126/63 97 (1) Exacerbation of Crohn's disease Digestive disease complication type: with rectal bleeding Qualified Code(s): K50.911 - Crohn's disease, unspecified, with rectal bleeding
[2018-09-05] MEDS: ZOLPIDEM TARTRATE 5 MG TAB PO PRN (22:51)
[2018-09-06] MEDS: methylPREDNISolone 60 MG in SYRINGE 0 ML IV SCH ×2 (04:02→16:05)
[2018-09-06 07:52] LABS: Hematocrit (blood only) 25.5 % (37-47); Hemoglobin 7.9 g/dL (12.0-16.0); Mean Corpuscular Volume 81.5 fL (80-100); Mean Platelet Volume 8.2 fL (7.4-10.4); Platelet Count 539 K/uL (130-400); RDW Coefficient of Variation 16.2 % (11.5-14.5); RDW Standard Deviation 47.8 fL (36.4-46.3); Red Blood Count 3.13 M/uL (4.2-5.4); White Blood Count 8.93 K/uL (4.8-10.8)
[2018-09-06 08:03] LABS: INR 1.1 (0.9-1.1); Partial Thromboplastin Ratio 0.9; Partial Thromboplastin Time 23.7 Seconds (21.0-31.0); Prothrombin Time 11.4 Seconds (9.0-12.0)
[2018-09-06 08:15] LABS: Hypochromasia Present; Immature Granulocytes # (auto) 0.07 K/uL (0.00-0.02); Immature Granulocytes % (auto) 0.8 %; Lymphocytes # (auto) 0.94 K/uL (1.2-3.4); Lymphocytes % (auto) 10.5 %; Monocytes # (auto) 0.58 K/uL (0.11-0.59); Monocytes % (auto) 6.5 %; Neutrophils # (auto) 7.34 K/uL (1.4-6.5); Neutrophils % (auto) 82.2 %
[2018-09-06 08:23] LABS: Albumin Level 2.1 gm/dl (3.4-5.0); BUN Creatinine Ratio 18.1 (10-20); Calcium 9.1 mg/dl (8.5-10.1); Creatinine Clr Calc Pharmacy 86.5 ml/min; Est GFR (African American) 116.3; Est GFR (Non-African American) 100.4
[2018-09-06 08:26] LABS: Albumin Globulin Ratio 0.6 (0.9-2); Bilirubin,Total 0.3 mg/dl (0.2-1); Globulin 3.7 gm/dl (2.5-4.0); Total Protein 5.9 gm/dl (6.4-8.2)
[2018-09-06] MEDS: TRAMADOL HCL 50 MG TABLET PO PRN ×2 (09:26→21:28)
[2018-09-06] MEDS: PANTOprazole 40 MG TAB PO SCH (09:27)
[2018-09-06] MEDS: CYANOCOBALAMIN 500 MCG TABLET (VITAMIN B-12) PO SCH (09:27)
--- NOTE | 2018-09-06 10:02 | Hospitalist Progress Note ---
Date of Service September 06, 2018 Assessment & Plan (1) Exacerbation of Crohn's disease: - Continue IV steroids per GI - per patient - Dr. Posada will discontinue Entyvio and will be initiating a new agent - clear liquid diet -GI consult (2) Iron deficiency anemia: Hgb 7.9, iron level was 15 on 08/29 - was due for Venofer infusions tomorrow at [facility], will infuse another dose of Venofer today. Patient reports that she does not tolerate po iron very well (3) Thrush, oral: Continue nystatin (4) Vitamin B12 deficiency: continue B12 (5) Back pain: hold home celecoxib and continue Tramadol prn . K pad (6) DVT prophylaxis: SCDs Subjective Ms. Marti had multiple bowel movements over the night with blood in her stool. She feels a bit tremulous from the steroids. She has also been having 5/10 back pain Review of Systems Review of Systems: All systems reviewed & are unremarkable except as noted in HPI & below Physical Exam 2 Physical Exam: General: no distress Eyes: normal inspection, PERLL Respiratory: chest non tender, clear to auscultation, normal breath sounds, no respiratory distress, no accessory muscle use Cardiac: regular rate and rhythm, no rub or gallop, no murmur, no edema, no jvd GI/: active bowel sounds, no abd pain or tenderness, soft, non distended Extremities: normal range of motion, normal strength, non tender Neuro/Psych: alert and oriented x 3, normal mood and affect Skin: normal color, dry Results & Data Vital Signs (Past 12 Hours) Vital Signs Temp Pulse Resp BP Pulse Ox 09/06/18 07:21 36.8 C 62 18 120/69 98 09/05/18 22:52 36.6 C 80 20 112/71 98 PG Care Time/CCT Total # of Minutes Spent Total Time Spent with Patient: Total time spent is greater than 50% in coordination of care (as documented) at patient's floor/unit and/or counseling patient: (1) Exacerbation of Crohn's disease Digestive disease complication type: with rectal bleeding Qualified Code(s): K50.911 - Crohn's disease, unspecified, with rectal bleeding
[2018-09-06] MEDS ORDERED: IRON SUCROSE 100 MG in 0.9 % SODIUM CHLORIDE 100 ML IV ONE (11:00)
--- NOTE | 2018-09-06 15:14 | Gastroenterology Progress Note ---
Date of Service September 06, 2018 Assessment & Plan (1) Exacerbation of Crohn's disease: Continue IV steroids. Advance diet to low fiber. Dr Posada recommends Stelara and spoken with pharmacy who has it on order for tomorrow. diarrhea--can certainly be from crohns but check cdiff GI bleeding--likely crohns , Cdiff negative. abd pain--from crohns most likely. most recent CT 08/30/18 and do not feel another will add much benefit. Subjective cc f/u diarrhea, GI bleeding HPI with patient for H and P. Several stools overnight but only one since this am. Blood in each bm. Complaining of anal pain from diarrhea. Review of Systems Respiratory: no dyspnea Cardiovascular: no chest pain Physical Exam Constitutional: WD/WN, vitals as above Respiratory: normal respiratory effort, lungs clear to auscultation Cardiovascular: RRR, no murmur, no edema Gastrointestinal (Abdomen): normal bowel sounds, soft, nontender, no hepatosplenomegaly Results & Data Vital Signs (Past 12 Hours) Vital Signs Temp Pulse Resp BP BP Pulse Ox 09/06/18 15:00 36.5 C 66 18 119/71 99 09/06/18 07:21 36.8 C 62 18 120/69 98 (1) Exacerbation of Crohn's disease Digestive disease complication type: with rectal bleeding Qualified Code(s): K50.911 - Crohn's disease, unspecified, with rectal bleeding
[2018-09-06] MEDS: DICYCLOMINE HCL 10 MG CAP PO PRN (19:07)
[2018-09-06] MEDS: LIDOCAINE 4% CREAM 15 GM TUBE EXT PRN ×2 (19:08→21:28)
[2018-09-06] MEDS: ZOLPIDEM TARTRATE 5 MG TAB PO PRN (22:25)
[2018-09-07] MEDS: methylPREDNISolone 60 MG in SYRINGE 0 ML IV SCH ×2 (04:07→16:02)
[2018-09-07 06:42] LABS: Basophils # (auto) 0.01 K/uL (0-0.2); Basophils % (auto) 0.1 %; Hematocrit (blood only) 25.2 % (37-47); Hemoglobin 7.8 g/dL (12.0-16.0); Immature Granulocytes # (auto) 0.07 K/uL (0.00-0.02); Immature Granulocytes % (auto) 0.8 %; Lymphocytes # (auto) 0.94 K/uL (1.2-3.4); Lymphocytes % (auto) 10.8 %; Mean Corpuscular Volume 81.3 fL (80-100); Mean Platelet Volume 8.3 fL (7.4-10.4); Monocytes # (auto) 0.57 K/uL (0.11-0.59); Monocytes % (auto) 6.6 %; Neutrophils # (auto) 7.09 K/uL (1.4-6.5); Neutrophils % (auto) 81.7 %; Platelet Count 540 K/uL (130-400); RDW Coefficient of Variation 16.4 % (11.5-14.5); RDW Standard Deviation 48.2 fL (36.4-46.3); White Blood Count 8.68 K/uL (4.8-10.8)
[2018-09-07 07:08] LABS: Polychromasia 1+
[2018-09-07 07:18] LABS: Albumin Level 2.2 gm/dl (3.4-5.0); BUN Creatinine Ratio 18.4 (10-20); Creatinine Clr Calc Pharmacy 78.3 ml/min; Est GFR (African American) 107.2; Est GFR (Non-African American) 92.5; Potassium 3.7 mmol/L (3.5-5.1)
[2018-09-07 07:21] LABS: Albumin Globulin Ratio 0.6 (0.9-2); Bilirubin,Total 0.2 mg/dl (0.2-1); Globulin 3.6 gm/dl (2.5-4.0); Total Protein 5.8 gm/dl (6.4-8.2)
[2018-09-07] MEDS: CYANOCOBALAMIN 500 MCG TABLET (VITAMIN B-12) PO SCH (10:07)
[2018-09-07] MEDS: DICYCLOMINE HCL 10 MG CAP PO PRN ×2 (10:07→18:12)
[2018-09-07] MEDS: LIDOCAINE 4% CREAM 15 GM TUBE EXT PRN ×2 (10:08→18:13)
[2018-09-07] MEDS: PANTOprazole 40 MG TAB PO SCH (10:08)
[2018-09-07] MEDS ORDERED: SODIUM CHLORIDE 0.9% IV ONE (11:00)
[2018-09-07] MEDS ORDERED: USTEKINUMAB IV ONE (11:00)
--- NOTE | 2018-09-07 11:24 | Hospitalist Progress Note ---
Date of Service September 07, 2018 Assessment & Plan (1) Exacerbation of Crohn's disease: - Continue IV steroids per GI - Dr. Posada will discontinue Entyvio and will give Stelara infusion today -bland diet -GI consult (2) Iron deficiency anemia: Hgb 7.8, iron level was 15 on 08/29 - Will give another dose of 100 mg Venofer today for a total of 300 mg this stay (3) Thrush, oral: Continue nystatin (4) Vitamin B12 deficiency: continue B12 (5) Back pain: hold home celecoxib and continue Tramadol prn. K pad (6) DVT prophylaxis: SCDs Subjective Ms. Marti continues to have frequent bowel movements but does not see anymore blood. Her abdomen is very tender. Review of Systems Review of Systems: All systems reviewed & are unremarkable except as noted in HPI & below Physical Exam Physical Exam: General: no distress Eyes: normal inspection, PERLL Respiratory: chest non tender, clear to auscultation, normal breath sounds, no respiratory distress, no accessory muscle use Cardiac: regular rate and rhythm, no rub or gallop, no murmur, no edema, no jvd GI/: active bowel sounds, tender abdomen, soft, non distended Extremities: normal range of motion, normal strength, non tender Neuro/Psych: alert and oriented x 3, normal mood and affect Skin: normal color, dry Results & Data Vital Signs (Past 12 Hours) Vital Signs Temp Pulse Resp BP Pulse Ox 09/07/18 06:53 36.9 C 80 20 124/77 98 PG Care Time/CCT Total # of Minutes Spent Total Time Spent with Patient: Total time spent is greater than 50% in coordination of care (as documented) at patient's floor/unit and/or counseling patient: (1) Exacerbation of Crohn's disease Digestive disease complication type: with rectal bleeding Qualified Code(s): K50.911 - Crohn's disease, unspecified, with rectal bleeding
[2018-09-07] MEDS ORDERED: IRON SUCROSE 100 MG in 0.9 % SODIUM CHLORIDE 100 ML IV SCH (12:30)
[2018-09-07] MEDS: TRAMADOL HCL 50 MG TABLET PO PRN ×2 (14:33→21:46)
--- NOTE | 2018-09-07 16:26 | Progress Note ---
DATE: 09/07/2018 SUBJECTIVE: The patient reports that she is still having a lot of loose stools day and night. She is not really interested in taking any Imodium or Lomotil unless she really needs it, but it was offered to her. She is eating some solid food, which does stimulate her bowel movements a little bit more frequently. She got her first induction dose of Stelara today, which was 390 mg IV and tolerated it well. She continues to take IV steroids. PHYSICAL EXAMINATION: VITAL SIGNS: Normal. She is afebrile. ABDOMEN: Soft. There is minimal left lower quadrant tenderness to deep palpation. IMPRESSION AND PLAN: The patient's colonic Crohn disease was treated today with Stelara for the first time, I am hoping that this will start to show some benefit and hopefully tomorrow, we can switch her back to an oral dose of 40 mg of prednisone. She has Bentyl to use if needed for cramps and antidiarrheal medication as needed. Hopefully, if she is improved by tomorrow, she will be able to go home. We can reassess that tomorrow.
[2018-09-07] MEDS: ZOLPIDEM TARTRATE 5 MG TAB PO PRN (21:46)
[2018-09-08] MEDS: methylPREDNISolone 60 MG in SYRINGE 0 ML IV SCH (03:39)
[2018-09-08 06:01] LABS: Hematocrit (blood only) 24.8 % (37-47); Hemoglobin 7.7 g/dL (12.0-16.0); Immature Granulocytes # (auto) 0.18 K/uL (0.00-0.02); Immature Granulocytes % (auto) 2.1 %; Lymphocytes # (auto) 0.85 K/uL (1.2-3.4); Lymphocytes % (auto) 9.9 %; Mean Corpuscular Volume 81.6 fL (80-100); Mean Platelet Volume 8.4 fL (7.4-10.4); Monocytes # (auto) 0.76 K/uL (0.11-0.59); Monocytes % (auto) 8.9 %; Neutrophils # (auto) 6.77 K/uL (1.4-6.5); Neutrophils % (auto) 79.1 %; Nucleated RBC # (auto) 0.02 K/uL (0-0); Nucleated RBC % (auto) 0.2 %; Platelet Count 490 K/uL (130-400); RDW Coefficient of Variation 16.3 % (11.5-14.5); RDW Standard Deviation 48.8 fL (36.4-46.3); Red Blood Count 3.04 M/uL (4.2-5.4); White Blood Count 8.56 K/uL (4.8-10.8)
[2018-09-08] MEDS: TRAMADOL HCL 50 MG TABLET PO PRN ×3 (06:14→22:31)
[2018-09-08 06:28] LABS: Albumin Level 2.1 gm/dl (3.4-5.0); Calcium 8.7 mg/dl (8.5-10.1); Creatinine Clr Calc Pharmacy 80.5 ml/min; Est GFR (African American) 110.8; Est GFR (Non-African American) 95.6; Potassium 3.8 mmol/L (3.5-5.1)
[2018-09-08 06:31] LABS: Albumin Globulin Ratio 0.6 (0.9-2); Bilirubin,Total 0.2 mg/dl (0.2-1); Globulin 3.3 gm/dl (2.5-4.0); Total Protein 5.4 gm/dl (6.4-8.2)
[2018-09-08 06:37] LABS: RBC Morphology Unremarkable
[2018-09-08] MEDS: CYANOCOBALAMIN 500 MCG TABLET (VITAMIN B-12) PO SCH (08:19)
[2018-09-08] MEDS: PANTOprazole 40 MG TAB PO SCH (08:20)
[2018-09-08] MEDS: DICYCLOMINE HCL 10 MG CAP PO PRN ×2 (08:20→19:57)
[2018-09-08] MEDS ORDERED: IRON SUCROSE 200 MG in 0.9 % SODIUM CHLORIDE 100 ML IV SCH (09:30)
[2018-09-08] MEDS ORDERED: SODIUM CHLORIDE 0.9% 250 ML IV PRN ×2 (14:45→15:18)
--- NOTE | 2018-09-08 15:06 | Progress Note ---
DATE: 09/08/2018 REASON FOR EVALUATION: Colonic Crohn's disease. HISTORY OF PRESENT ILLNESS: The patient is tolerating a low-fiber diet and has had no bowel movements today. She did have one at 3:00 in the morning during the night, but her abdominal pain is decreasing, I think the Stelara infusion that she got 2 days ago is starting to have an impact. PHYSICAL EXAMINATION: VITAL SIGNS: Normal. She is afebrile. ABDOMEN: A little bit mildly tender. IMPRESSION: The patient seems to be having some response to the infusion of Stelara. I plan on stopping her IV Solu-Medrol today and be getting oral prednisone tomorrow morning at 40 mg. Her hemoglobin is 7.7 and I plan on transfusing her 2 units of blood today and hopefully if she continues to do well, she will be able to be discharged tomorrow morning.
--- NOTE | 2018-09-08 16:14 | Hospitalist Progress Note ---
Date of Service September 08, 2018 Assessment & Plan (1) Exacerbation of Crohn's disease: - Continue IV steroids per GI - Dr. Posada discontinued Entyvio and gave Stelara infusion 09/07. -bland diet -GI consult (2) Iron deficiency anemia: Hgb 7.8, iron level was 15 on 08/29 - Will give another dose of 200 mg Venofer today for a total of 500 mg this stay 2 units prbcs per GI (3) Thrush, oral: Continue nystatin (4) Vitamin B12 deficiency: continue B12 (5) Back pain: hold home celecoxib and continue Tramadol prn. K pad (6) DVT prophylaxis: SCDs Subjective Ms. Marti is feeling better as far as pain and bloating. She did have some melena this morning Review of Systems Review of Systems: All systems reviewed & are unremarkable except as noted in HPI & below Physical Exam Physical Exam: General: no distress Eyes: normal inspection, PERLL Respiratory: chest non tender, clear to auscultation, normal breath sounds, no respiratory distress, no accessory muscle use Cardiac: regular rate and rhythm, no rub or gallop, no murmur, no edema, no jvd GI/: active bowel sounds, no abd pain or tenderness, soft, non distended Extremities: normal range of motion, normal strength, non tender Neuro/Psych: alert and oriented x 3, normal mood and affect Skin: normal color, dry Results & Data Vital Signs (Past 12 Hours) Vital Signs Temp Pulse Resp BP Pulse Ox 09/08/18 15:59 36.9 C 69 18 109/55 L 95 09/08/18 07:05 36.8 C 60 18 119/69 98 PG Care Time/CCT Total # of Minutes Spent Total Time Spent with Patient: Total time spent is greater than 50% in coordination of care (as documented) at patient's floor/unit and/or counseling patient: (1) Exacerbation of Crohn's disease Digestive disease complication type: with rectal bleeding Qualified Code(s): K50.911 - Crohn's disease, unspecified, with rectal bleeding
[2018-09-08] MEDS: ZOLPIDEM TARTRATE 5 MG TAB PO PRN (23:17)
[2018-09-09] MEDS: TRAMADOL HCL 50 MG TABLET PO PRN (06:00)
[2018-09-09 06:29] LABS: Hematocrit (blood only) 32.9 % (37-47); Hemoglobin 10.8 g/dL (12.0-16.0); Mean Corpuscular Hgb Conc 32.8 g/dL (32-36); Mean Corpuscular Volume 84.1 fL (80-100); Mean Platelet Volume 8.4 fL (7.4-10.4); Nucleated RBC # (auto) 0.04 K/uL (0-0); Nucleated RBC % (auto) 0.5 %; Platelet Count 470 K/uL (130-400); RDW Coefficient of Variation 16.3 % (11.5-14.5); RDW Standard Deviation 49.3 fL (36.4-46.3); Red Blood Count 3.91 M/uL (4.2-5.4); White Blood Count 7.79 K/uL (4.8-10.8)
[2018-09-09 06:49] LABS: Albumin Level 2.2 gm/dl (3.4-5.0); Calcium 8.6 mg/dl (8.5-10.1); Creatinine Clr Calc Pharmacy 65.8 ml/min; Est GFR (African American) 86.9; Potassium 3.3 mmol/L (3.5-5.1)
[2018-09-09 06:52] LABS: Albumin Globulin Ratio 0.7 (0.9-2); Bilirubin,Total 0.4 mg/dl (0.2-1); Globulin 3.3 gm/dl (2.5-4.0); Total Protein 5.5 gm/dl (6.4-8.2)
[2018-09-09 07:06] VITALS: BP 113/68; PULSE 60; TEMP 98.2; O2SAT 98
[2018-09-09 07:07] LABS: Basophils # (auto) 0.01 K/uL (0-0.2); Basophils % (auto) 0.1 %; Eosinophils # (auto) 0.02 K/uL (0-0.5); Eosinophils % (auto) 0.3 %; Immature Granulocytes # (auto) 0.29 K/uL (0.00-0.02); Immature Granulocytes % (auto) 3.7 %; Lymphocytes # (auto) 2.28 K/uL (1.2-3.4); Lymphocytes % (auto) 29.3 %; Monocytes # (auto) 0.89 K/uL (0.11-0.59); Monocytes % (auto) 11.4 %; Neutrophils % (auto) 55.2 %; RBC Morphology Unremarkable
[2018-09-09] MEDS: CYANOCOBALAMIN 500 MCG TABLET (VITAMIN B-12) PO SCH (07:47)
[2018-09-09] MEDS: PANTOprazole 40 MG TAB PO SCH (07:48)
[2018-09-09] MEDS: LIDOCAINE 4% CREAM 15 GM TUBE EXT PRN (07:48)
[2018-09-09] MEDS ORDERED: predniSONE 20 MG TAB PO SCH (09:00)
[2018-09-09] MEDS ORDERED: POTASSIUM CHLORIDE 20 MEQ TABCR PO STA (09:04)
--- NOTE | 2018-09-09 11:15 | Discharge Summary ---
Date of Service September 09, 2018 Admission HPI Per Admitting Provider 52 y/o F Hx Crohn's disease, B12 deficiency, arthralgias and sacroiliitis. The pt was has been experiencing a flare of her Crohn's disease, persistent diarrhea, rectal bleeding and resultant anemia for close to 6 months. Prior to this time she had been taking Remicade successfully for 1.5 years until the medication essentially failed. She is now prescribed Entyvio and has been taking this, thus far without effect for approximately 14 weeks. She is also on a steroid taper and Budesonide. 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 PMH: 1) Crohn's disease - she was diagnosed with UC at age 36 although she has likely had Crohn's from the outset. She managed with Mesalazine and occasional steroids for nearly 15 years until starting Remicade. The diagnosis was recently changed from UC to Crohn's based on colonoscopy results. She follows with Dr Posada and has consulted with a specialist at [place] and [facility] as well. 2) HLA B27 +. She is told she likely has ankylosing spondylitis but does not have an official diagnosis. 3) Chronic arthralgias and sacroiliitis. 4) B12 deficiency 5) Anemia due to chronic disease, blood loss and iron deficiecny - recent baseline Hb has been 9-10 6) Asthma Surgical: 1) Broken nose 2) [place] teeth 3) L elbow surgery 4) C section 5) Cholecystectomy Social: Rare ETOH, no smoking history. 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 Family: 2 siblings with UC Father had colon CA Principal Diagnosis Crohns flare Discharge Exam Constitutional WD/WN, vitals as above Respiratory normal respiratory effort, lungs clear to auscultation Cardiovascular RRR, no murmur, no edema Gastrointestinal (Abdomen) Inspection/Auscultation: abdomen normal to inspection and normal bowel sounds; abdomen not distended Percussion/Palpation: abdomen soft; abdomen nontender Musculoskeletal no cyanosis or clubbing, extremities motor strength 5/5 Skin no rashes, warm and dry Neurologic moves all extremities and awake Psychiatric A+Ox3, euthymic affect Discharge Data Allergies Allergy/AdvReac Type Severity Reaction Status Date / Time amoxicillin [From Augmentin] Allergy Verified 09/04/18 15:00 clavulanic acid Allergy Verified 09/04/18 15:00 [From Augmentin] Consultations 09/04/18 16:24 ED Decision to Admit Stat 09/04/18 18:26 Consult Gastroenterology Routine Hospital Course (1) Exacerbation of Crohn's disease: - po steroids - Dr. Posada will taper outpatient - Dr. Posada discontinued Entyvio and gave Stelara infusion 09/07. -bland diet -GI consult (2) Iron deficiency anemia: Hgb 10.8, iron level was 15 on 08/29 - given Venofer 4 days for a total of 500 mg this stay 2 units prbcs per GI 09/08 (3) Vitamin B12 deficiency: continue B12 (4) Back pain: hold home celecoxib and continue Tramadol prn. K pad (5) DVT prophylaxis: SCDs Total Time Total Time Spent Total Time Spent (In Minutes): greater than 30 minutes Discharge Plan Discharge Items Patient Disposition: Home - Self-Care Reason For Visit: UC FLARE Discharge Diagnosis: Crohns disease Discharge Goals: Decrease discomfort and Improve disease control Activity: Resume your previous activity Non-emergency contact: Primary Care Provider and Maintenance Machinist Follow-up/Referrals: Sophie Russell MD [Primary Care Provider] - 09/14/18 2:30 pm (Please, follow up with Dr. Russell on WednesdayOctober 15 at 2:30 pm. *If you need to change this appointment, call the office at [phone].) Amol Posada [Physician] - 10/24/18 9:40 am (Please, follow up with Dr. Posada on WednesdayOctober 24 at 9:40 am. THE NURSE WILL TALK WITH DR. POSADA AND IF HE WANTS TO SEE YOU SOONER THAN THIS, SOMEONE WILL CALL YOU. If you have any questions, call the office at [phone].) Diet: Regular Other Ambulatory Orders: Complete Blood Count no Diff (Routine) Timeframe: [id number] Location: Determined by Patient Ordered By: Shahnaz Rosadotl Provider Instructions: Please have your blood drawn on Wednesday. You should follow up with Dr. Russell or Dr. Posada concerning results of your test. Please hold your celecoxib until you are no longer having any bleeding. You can take Tylenol up to 3,000 mg (3g) per day. Prescriptions: Continued pantoprazole 20 mg tablet,delayed release (DR/EC) 20 mg PO QAM Qty: 90 RF: 3 prednisone 10 mg tablets,dose pack 40 mg PO QAM RF: 0 pramoxine [Proctofoam] 1 % foam 1 appln AL TID RF: 0 ondansetron HCl 4 mg tablet 4 mg PO QID PRN (Reason: nausea and vomiting) Qty: 30 RF: 1 dicyclomine 10 mg Capsule 10 mg PO BID PRN (Reason: .) RF: 0 loratadine 10 mg capsule 10 mg PO DAILY PRN (Reason: Allergy Symptoms) RF: 0 cyanocobalamin (vitamin B-12) 1,000 mcg capsule 1,000 mcg PO QAM RF: 0 Discontinued Entyvio 300 mg recon soln 300 mg IV .COMPLEX RF: 0 celecoxib 200 mg capsule 200 mg PO PM Qty: 90 RF: 3 Stand-Alone Forms: Call Back Authorization, [facility] Discharge Orders: Discharge Order (Routine); Ordered 09/09/18 Ordered By: Shahnaz Hernandez Admission Data Admit Date/Time: 09/04/18 17:18 Attending Provider: Curt Chapa Admit Provider: Cristian Boss Primary Care Provider: Sophie Russell Other Providers: Cristian Boss ; Amol Posada Service: Medical
== END 2018-09-09 12:37 | disposition home or self-care (01) | DRG 386 ==
LOC: ED 14:03 → SUATTDRO 17:18 → 2W 17:18
DX: B37.2 Candidiasis of skin and nail; J45.909 Unspecified asthma, uncomplicated; B37.0 Candidal stomatitis; Z82.49 Family history of ischemic heart disease and other diseases of the circulatory system; K50.911 Crohn's disease, unspecified, with rectal bleeding; D64.9 Anemia, unspecified; E78.5 Hyperlipidemia, unspecified; E53.8 Deficiency of other specified B group vitamins; Z80.0 Family history of malignant neoplasm of digestive organs; Z88.1 Allergy status to other antibiotic agents; G60.9 Hereditary and idiopathic neuropathy, unspecified; G47.00 Insomnia, unspecified